=== PATIENT | female | born 1970 | race Caucasian/White ===

== ENCOUNTER 2022-01-26 04:31 | Day surgery (SDC) | payer OTHER ==
[2022-01-24 13:23] VITALS: BMI 28.7
[2022-01-26 08:25] VITALS: TEMP 97.8
[2022-01-26 09:09] VITALS: BP 105/75; PULSE 72
== END 2022-01-26 09:20 | disposition home or self-care (01) ==
LOC: JASU-ENDO 04:31
PROVIDERS: ATTEND Internal Medicine Gastroenterology
PROC: 0DJD8ZZ Inspection of Lower Intestinal Tract, Via Natural or Artificial Opening Endoscopic (ICD-10-PCS; principal; 2022-01-26 08:00)
DX: Z12.11 Encounter for screening for malignant neoplasm of colon (principal)
CPT/HCPCS: 81025

== ENCOUNTER 2023-07-13 15:03 | Emergency (ER) | payer BC, OTHER ==
[2023-07-13] MEDS ORDERED: TETANUS AND DIPHTHERIA TOXOID 0.5 ML DISP.SYRIN IM ONE (15:16)
[2023-07-13 15:30] VITALS: BP 120/87; PULSE 78; RESP 15; TEMP 98.5; BMI 27.3
[2023-07-13] MEDS ORDERED: DIPHTH,PERTUSS(ACELL),TET 0.5 ML DISP.SYRIN IM ONE ×2 (15:39→15:40)
[2023-07-13 16:23] LABS: ALBUMIN 4.6 g/dl (3.4-5.0); BLOOD UREA NITROGEN 18.5 mg/dl (7-18); CALCIUM 9.5 mg/dl (8.5-10.1); CREATININE 0.7 mg/dl (0.6-1.3); PHOSPHOROUS 3.18 (2.5-4.9); POTASSIUM 3.6 mmol/L (3.5-5.1); SGOT/AST 14.7 U/L (15-37); SGPT/ALT 11.1 U/L (7-52); TOT PROT 6.5 g/dl (6.4-8.2); URIC ACID 4.9 mg/dl (2.6-7.2)
[2023-07-13 16:28] LABS: HEMATOCRIT 43.7 % (32.4-45.2); HEMOGLOBIN 14.6 G/dL (10.7-15.3); MCH 30.2 pg (25.7-33.7); MCHC 33.5 g/dl (32.0-36.0); MEAN PLT VOLUME 7.7 fl (7.5-11.1); PLATELET COUNT 329.6 10^3/uL (134-434); RBC 4.85 10^6/uL (3.60-5.2); RDW 13.7 % (11.6-15.6); WHITE BLOOD COUNT 6.5 10^3/uL (4.0-10.8)
[2023-07-13 19:00] LABS: HIV INTERPRETATION NEGATIVE (NEGATIVE)
[2023-07-13 21:05] LABS: PLATELET ESTIMATE ADEQUATE
[2023-07-13 21:23] LABS: BILIRUBIN,TOTAL 0.4 mg/dL (0.2-1)
== END 2023-07-13 16:02 | disposition home or self-care (01) ==
LOC: FER 15:03
PROC: 3E0234Z Introduction of Serum, Toxoid and Vaccine into Muscle, Percutaneous Approach (ICD-10-PCS; principal; 2023-07-13)
DX: S61.032A Puncture wound without foreign body of left thumb without damage to nail, initial encounter (principal); W46.1XXA Contact with contaminated hypodermic needle, initial encounter
CPT/HCPCS: 36415; 80053; 82465; 82977; 83615; 84100; 84478; 84550; 85025; 86704; 86803; 87340; 87389; 87517; 87522; 90715; 99283-25